=== PATIENT | male | born 1990 | race Hispanic/Latino ===

== ENCOUNTER 2021-06-17 22:22 | Emergency (ER) | payer SELFPAY ==
[2021-06-17] MEDS ORDERED: Famotidine/PF 20 mg/2ml Vial ONE (22:38)
[2021-06-17] MEDS ORDERED: diphenhydrAMINE 50 MG/ML VIAL ONE (22:38)
[2021-06-17] MEDS ORDERED: methylPREDNISolone Sod Succ/PF 125 MG/2 ML VIAL ONE (22:38)
== END 2021-06-18 01:50 | disposition home or self-care (01) ==
LOC: ERS 22:22
DX: L50.0 Allergic urticaria (principal)
CPT/HCPCS: 96374; 96375; J1200; J2930; S0028